=== PATIENT | female | born 1995 | race Caucasian/White ===

== ENCOUNTER 2017-02-26 20:33 | Emergency (ER) | payer MEDICAID ==
[2017-02-26 23:29] LABS: APPEARANCE,URINE CLEAR; BILIRUBIN,URINE NEGATIVE (NEGATIVE); GLUCOSE, URINE NEGATIVE (NEGATIVE); KETONES,URINE NEGATIVE (NEGATIVE); LEUKOCYTE ESTERASE,URINE TRACE (NEGATIVE); NITRITE,URINE NEGATIVE (NEGATIVE); PROTEIN,URINE NEGATIVE (NEGATIVE); URINE SPECIFIC GRAVITY 1.012; UROBILINOGEN,URINE NEGATIVE mg/dL (<2.0)
[2017-02-27 01:53] LABS: CHLAM PCR NOT DETECTED (NOT DETECT)
[2017-02-27] MEDS ORDERED: ACETAMINOPHEN 325 MG TABLET PO ONE (03:25)
[2017-02-27] MEDS ORDERED: METRONIDAZOLE 500 MG TABLET PO ONE (03:25)
--- NOTE | 2017-02-27 03:25 | ER Document Report ---
ED GI/ - General Chief Complaint: Abdominal Pain Stated Complaint: POSSIBLE ,CRAMPING Notes: Patient is a 22-year-old female who presents emergency Department complaining of suprapubic cramping worse on the right lower quadrant. Patient states that these cramps started yesterday and got worse Today. She denies any bleeding, admits to white discharge. Admits to nausea without vomiting. States she took a test recently which came back positive. She has not followed up with OB regarding this . Past medical history significant for history of kidney stones, asthma Past surgical history significant for renal calculus removal Social history: Daily smoker Primary care is [facility] TRAVEL OUTSIDE OF THE [place] IN LAST 30 DAYS: No - Related Data Allergies/Adverse Reactions: No Known Allergies Allergy (Unverified 02/26/17 20:44) Past Medical History - Social History Smoking Status: Current Every Day Smoker Family History: Reviewed & Not Pertinent Renal/ Medical History: Denies: Hx Peritoneal Dialysis Review of Systems - Review of Systems Gastrointestinal: No symptoms reported Genitourinary: No symptoms reported Female Genitourinary: See HPI -: Yes All other systems reviewed and negative Physical Exam - Vital signs Vitals: Temp Pulse Resp BP Pulse Ox 98.8 F 69 18 108/63 99 02/26/17 20:42 02/26/17 20:42 02/26/17 20:42 02/26/17 20:42 02/26/17 20:42 - Notes Notes: PHYSICAL EXAM GENERAL: Alert, interacts well. HEAD: Normocephalic, atraumatic. EYES: Pupils equal, round, and reactive to light. Extraocular movements intact. ENT: Oral mucosa moist, tongue midline. NECK: Full range of motion. Supple. Trachea midline. LUNGS: Clear to auscultation bilaterally, no wheezes, rales, or rhonchi. No respiratory distress. HEART: Regular rate and rhythm. No murmurs, gallops, or rubs. ABDOMEN: Soft, nondistended, mild tenderness in suprapubic and RLQ. No guarding , rebound, or rigidity.. Bowel sounds present in all 4 quadrants. FEMALE : Normal external exam. No evidence of lesions, lacerations, bruising or vesicles. Speculum exam normal cervix closed. There is evidence of white vaginal discharge without odor. No evidence of lesions. No vaginal bleeding. Bimanual exam normal no cervical motion tenderness. No adnexal mass or adnexal tenderness. EXTREMITIES: Moves all 4 extremities spontaneously. No edema, radial and dorsalis pedis pulses 2/4 bilaterally. No cyanosis. NEUROLOGICAL: Alert and oriented x4. Normal speech. PSYCH: Normal affect, normal mood. SKIN: Warm, dry, normal turgor. No rashes or lesions noted. Course - Re-evaluation Re-evalutation: 02/27/17 03:46 Patient is a 22-year-old female presents emergency Department complaining of abdominal cramping during . Stable, no acute distress and afebrile. Pelvic exam swabs show evidence of bacterial vaginitis, transvaginal ultrasound does not reveal living IUP. Evidence of a complex cystic structure on the right ovary. Beta hCG Quant is 304.5. Discussed these results with EASEMENT WORKER boat person Dr. Carolin Cedeno he recommends repeat beta hCG in 48 hours and call their office to discuss results and additional follow-up. Gustus plan with the patient is agreeable, also discussed signs and symptoms to be aware of indicating return to the emergency department. - Vital Signs Vital signs: Temp Pulse Resp BP Pulse Ox 97.9 F 53 L 18 111/72 95 02/27/17 03:57 02/27/17 03:57 02/27/17 03:57 02/27/17 03:57 02/27/17 03:57 - Laboratory Laboratory results interpreted by me: 02/26/17 02/27/17 22:58 00:05 Beta HCG, Quant 304.45 H Urine Blood SMALL H Ur Leukocyte Esterase TRACE H Urine HCG, Qual POSITIVE H - Diagnostic Test Radiology reviewed: Reports reviewed Discharge - Discharge Clinical Impression: Bacterial vaginitis, Abdominal pain during Condition: Good Disposition: HOME, SELF-CARE Additional Instructions: -You'll need to return to the hospital for repeat blood work on March 01. After this test has been done please call Dr. Carolin Cedeno's office at [facility] to discuss additional follow-up. Her office's phone number is VAGINITIS: Your exam shows that you have vaginitis, a vaginal infection. The infection can be caused by a many different organisms, including trichomonas or Gardnerella. The usual symptoms are vaginal irritation and discharge. The treatment is usually antibiotics such as Flagyl. Laboratory tests can determine which germ is responsible. Use the medication as prescribed. Because this infection can be transmitted sexually, your sexual partner may need to be checked and treated also. If your physician has not discussed this with you, please check before resuming sexual relations. If a culture shows gonorrhea or chlamydia, the infection must be reported to the health department. Call the doctor if you develop pelvic pain, fever, or problems with urination, or if you don't improve as expected. VAGINOSIS, BACTERIAL: Your exam shows you have bacterial vaginosis. This condition is due to an overgrowth of bacteria in the vagina. Symptoms may include vaginal itching or pain, a smelly discharge, and sometimes burning with urination. Normally this is not transmitted by sexual contact. Vaginosis can be treated with oral or topical antibiotics. Metronidazole ( Flagyl) pills are usually effective. Topical vaginal creams include Cleocin and Metro-Gel. You should avoid sexual contact until your symptoms are all better. Call the doctor if you develop pelvic pain, fever, or problems with urination, or if you don't improve as expected. ANTIBIOTIC THERAPY: You have been given an antibiotic prescription. It's important that you take all the medication, unless instructed otherwise by your physician. Failure to complete the entire course can result in relapse of your condition. Common side effects of antibiotics include nausea, intestinal cramping, or diarrhea. Women may develop vaginal yeast infections, and babies can get yeast (thrush) in the mouth following the use of antibiotics. Contact your physician if you develop significant side effects from this medication. Allergy to this antibiotic can result in hives, wheezing, faintness, or itching. If symptoms of allergy occur, stop the medication and call the doctor. METRONIDAZOLE: Metronidazole (Flagyl) has been prescribed. This medication is used to kill a type of bacteria called anaerobes, and protozoan parasites such as trichomonas and Giardia. Flagyl often causes a metallic taste in the mouth and mild nausea. Do not use alcohol in any form with Flagyl (including alcohol in medication elixirs). Flagyl interacts with alcohol to cause flushing, palpitations, headache, stomach cramps, and vomiting. Do not use Flagyl if you are taking Antabuse (disulfiram). Call the doctor at once if you develop rash, shortness of breath, itching, or lightheadedness. FOLLOW-UP CARE: If you have been referred to a physician for follow-up care, call the physician s office for an appointment as you were instructed or within the next two days. If you experience worsening or a significant change in your symptoms, notify the physician immediately or return to the Emergency Department at any time for re-evaluation. Prescriptions: Metronidazole [Flagyl 500 mg Tablet] 500 mg PO BID 7 Days Forms: Follow-Up Laboratory Testing, Parent Work Note Referrals: CAROLIN DAVIS MD [ACTIVE STAFF] - Follow up in 3-5 days
[2017-02-27 04:06] VITALS: BP 111/72
== END 2017-02-27 04:00 | disposition home or self-care (01) ==
LOC: ER 20:33
DX: O23.599 Infection of other part of genital tract in pregnancy, unspecified trimester (principal); N76.0 Acute vaginitis; B96.89 Other specified bacterial agents as the cause of diseases classified elsewhere; R10.9 Unspecified abdominal pain; O99.330 Smoking (tobacco) complicating pregnancy, unspecified trimester; Z87.442 Personal history of urinary calculi
CPT/HCPCS: 99284; 36415; 87210; 84702; 81025; 81001; 87491; 87591; 76817; 93976; J3490 ×2

== ENCOUNTER → 2017-03-01 | Outpatient (CLI) | payer MEDICAID | LOC: LAB 12:39 | PROVIDERS: ATTEND Physician Assistant Surgical | DX: O26.899 Other specified pregnancy related conditions, unspecified trimester (principal); R10.9 Unspecified abdominal pain | CPT/HCPCS: 36415; 84702 ==

== ENCOUNTER 2017-03-08 14:45 | Emergency (ER) | payer MEDICAID ==
[2017-03-08 15:08] LABS: ABSOLUTE BASOPHILS # (AUTO) 0.1 10^3/uL (0.0-0.2); ABSOLUTE EOSINOPHILS # (AUTO) 0.1 10^3/uL (0.0-0.6); ABSOLUTE LYMPHOCYTES (AUTO) 1.8 10^3/uL (0.5-4.7); ABSOLUTE MONOCYTES (AUTO) 0.8 10^3/uL (0.1-1.4); ABSOLUTE NEUT (AUTO) 5.7 10^3/uL (1.7-8.2); BASOPHILS % (AUTO) 0.6 % (0-2); EOSINOPHILS % (AUTO) 1.5 % (0-6); HEMATOCRIT 43.3 % (36.0-47.0); HEMOGLOBIN 14.5 g/dL (12.0-15.5); HGB HCT DIFFERENCE 0.2; LYMPHOCYTES % (AUTO) 21.4 % (13-45); MEAN CORPUSCULAR HEMOGLOBIN 28.1 pg (27.0-33.4); MEAN CORPUSCULAR HGB CONC 33.6 g/dL (32.0-36.0); MEAN CORPUSCULAR VOLUME 84 fl (80-97); RED BLOOD COUNT 5.17 10^6/uL (3.72-5.28); RED CELL DISTRIBUTION WIDTH 14.3 % (11.5-14.0); SEGMENTED NEUTROPHILS % (AUTO) 67.5 % (42-78); WHITE BLOOD COUNT 8.5 10^3/uL (4.0-10.5)
[2017-03-08] MEDS ORDERED: NORMAL SALINE 1000 ML 1,000 ML IV ONE (15:15)
[2017-03-08 15:23] LABS: ALANINE AMINOTRANSFERASE 22 U/L (9-52); ALBUMIN 4.1 g/dL (3.5-5.0); ALKALINE PHOSPHATASE 108 U/L (38-126); ANION GAP 16 (5-19); ASPARTATE AMINO TRANSFERASE 18 U/L (14-36); BILIRUBIN,DIRECT 0.3 mg/dL (0.0-0.4); BILIRUBIN,TOTAL 0.6 mg/dL (0.2-1.3); BLOOD UREA NITROGEN 9 mg/dL (7-20); CALCIUM 9.3 mg/dL (8.4-10.2); CARBON DIOXIDE 18 mmol/L (22-30); CHLORIDE 103 mmol/L (98-107); GLUCOSE 113 mg/dL (75-110); POTASSIUM 3.5 mmol/L (3.6-5.0); SODIUM 136.5 mmol/L (137-145); TOTAL PROTEIN 6.8 g/dL (6.3-8.2)
[2017-03-08 15:39] LABS: CREATININE RESULT 0.56 mg/dL (0.52-1.25)
--- NOTE | 2017-03-08 16:12 | ER Document Report ---
ED Respiratory Problem - General Mode of Arrival: Medic Information source: Patient TRAVEL OUTSIDE OF THE [place] IN LAST 30 DAYS: No - HPI Patient complains to provider of: Asthma, Cough, Short of breath Onset: Other - see HPI note Context: Hx asthma Associated symptoms: Cough, Difficulty breathing Similar symptoms previously: Yes Recently seen / treated by doctor: Yes <DANDY CONTE - Last Filed: 03/08/17 17:55> <XAVIER BAIN - Last Filed: 03/09/17 00:35> - General Chief Complaint: Shortness Of Breath Stated Complaint: DIFFICULTY BREATHING Notes: Patient is a 22 year old female presenting to the emergency department for dyspnea. Patient is 7 weeks with triplets; patient has been told she has 2 tubal pregnancies (left and right) as well as 1 uterine . Patient states she is being followed closely with DIGITAL PROJECT COORDINATOR for this and has a follow up appointment this Sunday for further assessment and another ultrasound. Patient denies any pain or vaginal bleeding. Patient states her back has been hurting but the pain has eased off. Patient states that she initially went to the emergency department yesterday for shortness of breath which is when the pregnancies were discovered; patient knew she was from a home test 2 weeks prior. Patient states that she today. She wants to be evaluated for her difficulty breathing. Patient has history of asthma and uses an albuterol inhaler. Patient states she has been using her rescue inhaler as well as a breathing treatment today with no relief. Patient states she has had a cough for the past 3 days and a fever today. Patient is a smoker, but states that she stopped yesterday when she found out she was having triplets. Patient's significant other has pneumonia. Patient has no known allergies. (DANDY CONTE) - Related Data Allergies/Adverse Reactions: No Known Allergies Allergy (Unverified 02/26/17 20:44) Past Medical History - General Information source: Patient - Social History Smoking Status: Former Smoker Cigarette use (# per day): No Chew tobacco use (# tins/day): No Frequency of alcohol use: None Drug Abuse: None Family History: None Pulmonary Medical History: Reports: Hx Asthma Renal/ Medical History: Reports: Hx Kidney Stones Past Surgical History: Reports: Hx Kidney (Renal Surgery) - stone removal - Immunizations Hx Diphtheria, Pertussis, Tetanus Vaccination: Yes <EDDANDY YUEN - Last Filed: 03/08/17 17:55> Review of Systems - Review of Systems Constitutional: No symptoms reported EENT: No symptoms reported Cardiovascular: No symptoms reported Respiratory: See HPI, Cough, Short of breath Gastrointestinal: No symptoms reported Genitourinary: No symptoms reported Female Genitourinary: No symptoms reported Musculoskeletal: No symptoms reported Skin: No symptoms reported Hematologic/Lymphatic: No symptoms reported Neurological/Psychological: No symptoms reported -: Yes All other systems reviewed and negative <JOSE MGUNJANDANDY - Last Filed: 03/08/17 17:55> Physical Exam <DANDY CONTE - Last Filed: 03/08/17 17:55> <XAVIER BAIN - Last Filed: 03/09/17 00:35> - Vital signs Vitals: Pulse Ox 93 03/08/17 14:49 - Notes Notes: GENERAL: Alert, diaphoretic, interacts well. No acute distress. HEAD: Normocephalic, atraumatic. EYES: Pupils equal, round, and reactive to light. Extraocular movements intact. ENT: Oral mucosa moist, tongue midline. NECK: Full range of motion. Supple. Trachea midline. LUNGS: Clear to auscultation bilaterally, no wheezes, rales, or rhonchi. No respiratory distress. Wet productive cough. HEART: Mild tachycardia, regular rhythm. No murmurs, gallops, or rubs. ABDOMEN: Soft, non-tender. Non-distended. Bowel sounds present in all 4 quadrants. EXTREMITIES: Moves all 4 extremities spontaneously. No edema. No cyanosis. NEUROLOGICAL: Alert and oriented x3. Normal speech. PSYCH: Normal affect, normal mood. SKIN: Warm, diaphoretic, normal turgor. No rashes or lesions noted. (DANDY CONTE) Course - Laboratory Result Diagrams: 03/08/17 14:50 03/08/17 14:50 <JOSE MDANDY - Last Filed: 03/08/17 17:55> - Laboratory Result Diagrams: 03/08/17 14:50 03/08/17 14:50 <XAVIER BAIN - Last Filed: 03/09/17 00:35> - Re-evaluation Re-evalutation: 03/08/17 17:36 CBC unremarkable, CMP shows low CO2 at 18, no renal failure, hCG is positive. Chest x-ray shows no acute process. Hypoxia has resolved after breathing treatments and steroids via EMS. Patient is feeling better after breathing treatments. Regarding the patient's she reports that she has been told she has to tubal pregnancies as well as 1 intrauterine . Patient states that she was having back pain several days ago, then they discovered her ectopic pregnancies, she is being followed by SALON MANAGER for this and the pain has actually improved, she is having no abdominal pain and no vaginal bleeding. She has a follow-up appointment with SALON MANAGER tomorrow. We are both in agreement that she does not need any further workup for her ectopic pregnancies at this time and we will focus primarily on her respiratory symptoms. At this time I feel that this is an acute bacterial bronchitis which requires steroids, bronchodilators and antibiotics. Patient is agreeable to this plan and will be discharged home on albuterol, prednisone and Augmentin. (XAVIER BAIN) - Vital Signs Vital signs: Temp Pulse Resp BP Pulse Ox 98.7 F 22 H 101/70 94 03/08/17 17:45 03/08/17 17:42 03/08/17 17:42 03/08/17 17:42 - Laboratory Laboratory results interpreted by me: 03/08/17 03/08/17 03/08/17 14:50 14:50 14:50 RDW 14.3 H Sodium 136.5 L Potassium 3.5 L Carbon Dioxide 18 L Glucose 113 H Serum HCG, Qual POSITIVE H Discharge <DANDY CONTE - Last Filed: 03/08/17 17:55> <XAVIER BAIN - Last Filed: 03/09/17 00:35> - Discharge Clinical Impression: Acute bronchitis with asthma with acute exacerbation, Acute bacterial bronchitis Qualifiers: Weeks of gestation: less than 8 weeks Qualified Code(s): Z3A.01 - Less than 8 weeks gestation of Condition: Stable Disposition: HOME, SELF-CARE Additional Instructions: Please use your albuterol inhaler 2 puffs every 4 hours as needed. Please return if you need of more than every 4 hours. Please take the prednisone and Augmentin as directed until they're gone. Please keep your follow-up appointment with SALON MANAGER tomorrow. If she experienced any increasing pain, any dizziness or lightheadedness, or any vaginal bleeding please come to the emergency department immediately. This may be a sign that one of your tubes has ruptured due to the tubal (ectopic) . Prescriptions: Amox Tr/Potassium Clavulanate [Augmentin 875-125 Tablet] 1 tab PO BID 7 Days Prednisone [Deltasone 20 mg Tablet] 3 tab PO DAILY 5 Days Scribe Attestation: 03/09/17 00:35 I personally performed the services described in the documentation, reviewed and edited the documentation which was dictated to the scribe in my presence, and it accurately records my words and actions. (XAVIER BAIN) Scribe Documentation - Scribe Written by Lulu:: Dandy Conte 03/08/17 17:55 acting as scribe for :: Greg <DANDY CONTE - Last Filed: 03/08/17 17:55>
[2017-03-08] MEDS ORDERED: AMOXICILLIN TR/POT CLAVULANATE 500-125 MG TAB PO ONE (17:32)
[2017-03-08] MEDS ORDERED: PREDNISONE 20 MG TABLET PO ONE (17:32)
[2017-03-08 17:43] VITALS: BP 101/70
== END 2017-03-08 17:45 | disposition home or self-care (01) ==
LOC: ER 14:45
DX: J20.9 Acute bronchitis, unspecified (principal); J45.901 Unspecified asthma with (acute) exacerbation; R06.02 Shortness of breath; Z3A.01 Less than 8 weeks gestation of pregnancy; Z87.442 Personal history of urinary calculi
CPT/HCPCS: 99285; 36415; 84703; 85025; 80053; 71020; J3490; J7512; J7030

== ENCOUNTER 2017-08-01 19:22 | Outpatient (CLI) | payer MEDICAID ==
[2017-08-01 20:16] LABS: APPEARANCE,URINE SLIGHTLY-CLOUDY; BILIRUBIN,URINE NEGATIVE (NEGATIVE); GLUCOSE, URINE NEGATIVE (NEGATIVE); KETONES,URINE NEGATIVE (NEGATIVE); LEUKOCYTE ESTERASE,URINE NEGATIVE (NEGATIVE); NITRITE,URINE NEGATIVE (NEGATIVE); PROTEIN,URINE NEGATIVE (NEGATIVE); URINE SPECIFIC GRAVITY 1.017; UROBILINOGEN,URINE NEGATIVE mg/dL (<2.0)
[2017-08-01 20:33] LABS: URINE BARBITURATES SCREEN NEGATIVE; URINE METHADONE SCREEN NEGATIVE; URINE OPIATES LOW NEGATIVE; URINE PHENCYCLIDINE SCREEN NEGATIVE
[2017-08-01] MEDS ORDERED: LANSOPRAZOLE 30 MG TAB.RAP.DR ONE (20:52)
== END 2017-08-01 21:00 | disposition home or self-care (01) ==
LOC: LC 19:22
PROVIDERS: ATTEND Specialist
PROC: 4A1HXCZ Monitoring of Products of Conception, Cardiac Rate, External Approach (ICD-10-PCS; principal; 2017-08-01)
DX: O26.892 Other specified pregnancy related conditions, second trimester (principal); R10.30 Lower abdominal pain, unspecified; Z3A.27 27 weeks gestation of pregnancy
CPT/HCPCS: 80307; 81001

== ENCOUNTER 2017-08-12 19:53 | Outpatient (CLI) | payer MEDICAID ==
[2017-08-12 20:26] LABS: APPEARANCE,URINE CLEAR; BILIRUBIN,URINE NEGATIVE (NEGATIVE); GLUCOSE, URINE NEGATIVE (NEGATIVE); KETONES,URINE NEGATIVE (NEGATIVE); LEUKOCYTE ESTERASE,URINE NEGATIVE (NEGATIVE); NITRITE,URINE NEGATIVE (NEGATIVE); PROTEIN,URINE NEGATIVE (NEGATIVE); URINE SPECIFIC GRAVITY 1.013
[2017-08-12 20:41] LABS: URINE BARBITURATES SCREEN NEGATIVE; URINE METHADONE SCREEN NEGATIVE; URINE OPIATES LOW NEGATIVE; URINE PHENCYCLIDINE SCREEN NEGATIVE
--- NOTE | 2017-08-12 21:03 | RADIOLOGY REPORT (SQ) ---
EXAM DESCRIPTION: U/S OB LIMITED COMPLETED DATE/TIME: 08/12/2017 8:54 pm REASON FOR STUDY: cervical length/28 weeks feeling pressure/pain COMPARISON: None. TECHNIQUE: Limited transabdominal and endovaginal grayscale ultrasound for evaluation of specific re quested obstetrical parameters. LIMITATIONS: None. FINDINGS: CERVICAL LENGTH: 3.4 cm. Closed. FHR: 150 beats per minute. PRESENTATION: Cephalic. OTHER: No other significant findings. IMPRESSION: 1. Living IUP. 2. Closed cervix measuring 3.4 cm. Trimester of : Third trimester - 28 weeks to delivery. TECHNICAL DOCUMENTATION: JOB ID: [id number] [employer]- All Rights Reserved
[2017-08-12] MEDS ORDERED: MAG HYDROX/AL HYDROX/SIMETH SUSP 30 ML UDCUP PO ONE (21:21)
[2017-08-12] MEDS ORDERED: ONDANSETRON HCL 8 MG TABLET PO ONE (21:21)
[2017-08-12] MEDS ORDERED: ONDANSETRON HCL 8 MG TABLET ONE (21:22)
[2017-08-12] MEDS ORDERED: MAG HYDROX/AL HYDROX/SIMETH SUSP 30 ML UDCUP ONE (21:23)
== END 2017-08-12 21:34 | disposition home or self-care (01) ==
LOC: LC 19:53
PROVIDERS: ATTEND Obstetrics & Gynecology
PROC: 4A1HXCZ Monitoring of Products of Conception, Cardiac Rate, External Approach (ICD-10-PCS; principal; 2017-08-12)
DX: Z34.92 Encounter for supervision of normal pregnancy, unspecified, second trimester (principal); Z3A.28 28 weeks gestation of pregnancy
CPT/HCPCS: 81001; 80307; 76815; 59899; J3490; S0119

== ENCOUNTER 2017-09-11 15:15 | Outpatient (CLI) | payer MEDICAID ==
[2017-09-11 16:23] LABS: AMNISURE (ROM) NEGATIVE (NEGATIVE)
[2017-09-11 17:01] LABS: APPEARANCE,URINE CLEAR; BILIRUBIN,URINE NEGATIVE (NEGATIVE); GLUCOSE, URINE NEGATIVE (NEGATIVE); KETONES,URINE NEGATIVE (NEGATIVE); LEUKOCYTE ESTERASE,URINE NEGATIVE (NEGATIVE); NITRITE,URINE NEGATIVE (NEGATIVE); PROTEIN,URINE NEGATIVE (NEGATIVE); URINE SPECIFIC GRAVITY 1.008; UROBILINOGEN,URINE NEGATIVE mg/dL (<2.0)
[2017-09-11 17:15] LABS: ABSOLUTE BASOPHILS # (AUTO) 0.1 10^3/uL (0.0-0.2); ABSOLUTE EOSINOPHILS # (AUTO) 0.3 10^3/uL (0.0-0.6); ABSOLUTE LYMPHOCYTES (AUTO) 2.6 10^3/uL (0.5-4.7); ABSOLUTE MONOCYTES (AUTO) 0.7 10^3/uL (0.1-1.4); ABSOLUTE NEUT (AUTO) 10.1 10^3/uL (1.7-8.2); BASOPHILS % (AUTO) 0.4 % (0-2); HEMATOCRIT 35.4 % (36.0-47.0); HEMOGLOBIN 11.8 g/dL (12.0-15.5); LYMPHOCYTES % (AUTO) 18.9 % (13-45); MEAN CORPUSCULAR HEMOGLOBIN 26.4 pg (27.0-33.4); MEAN CORPUSCULAR HGB CONC 33.3 g/dL (32.0-36.0); MEAN CORPUSCULAR VOLUME 79 fl (80-97); MONOCYTES % (AUTO) 5.2 % (3-13); RED BLOOD COUNT 4.48 10^6/uL (3.72-5.28); RED CELL DISTRIBUTION WIDTH 15.5 % (11.5-14.0); SEGMENTED NEUTROPHILS % (AUTO) 73.5 % (42-78); WHITE BLOOD COUNT 13.8 10^3/uL (4.0-10.5)
[2017-09-11] MEDS ORDERED: ONDANSETRON 4 MG TAB.RAPDIS PO ONE (17:30)
[2017-09-11 17:32] LABS: URINE BARBITURATES SCREEN NEGATIVE; URINE METHADONE SCREEN NEGATIVE; URINE OPIATES LOW NEGATIVE; URINE PHENCYCLIDINE SCREEN NEGATIVE
[2017-09-11 17:36] LABS: ALANINE AMINOTRANSFERASE 22 U/L (9-52); ALBUMIN 3.5 g/dL (3.5-5.0); ALKALINE PHOSPHATASE 123 U/L (38-126); AMYLASE 70 U/L (30-110); ANION GAP 10 (5-19); ASPARTATE AMINO TRANSFERASE 17 U/L (14-36); BILIRUBIN,DIRECT 0.2 mg/dL (0.0-0.4); BILIRUBIN,TOTAL 0.5 mg/dL (0.2-1.3); BLOOD UREA NITROGEN 7 mg/dL (7-20); CALCIUM 8.8 mg/dL (8.4-10.2); CARBON DIOXIDE 22 mmol/L (22-30); CHLORIDE 107 mmol/L (98-107); CREATININE RESULT 0.47 mg/dL (0.52-1.25); GLUCOSE 99 mg/dL (75-110); LIPASE 58.9 U/L (23-300); POTASSIUM 3.7 mmol/L (3.6-5.0); SODIUM 138.8 mmol/L (137-145); TOTAL PROTEIN 6.5 g/dL (6.3-8.2)
[2017-09-11 17:53] LABS: APPEARANCE,URINE CLEAR; BILIRUBIN,URINE NEGATIVE (NEGATIVE); GLUCOSE, URINE NEGATIVE (NEGATIVE); KETONES,URINE TRACE mg/dL (NEGATIVE); LEUKOCYTE ESTERASE,URINE NEGATIVE (NEGATIVE); NITRITE,URINE NEGATIVE (NEGATIVE); PROTEIN,URINE NEGATIVE (NEGATIVE); URINE SPECIFIC GRAVITY 1.013; UROBILINOGEN,URINE NEGATIVE mg/dL (<2.0)
--- NOTE | 2017-09-11 18:10 | Non Stress Test Report ---
Non Stress Test Datetime Report Generated by CPN: 09/11/2017 18:10 DEMOGRAPHIC EGA NST: 32.3 INDICATION Indication for Study: Ordered by Provider MONITORING Monitor Explained: Monitor Explained; Test Explained; Patient Verbalized Understanding Time on Monitor: 09/11/2017 16:51 Time off Monitor: 09/11/2017 17:15 NST Duration: 24 NST INTERVENTIONS NST Interventions: PO Hydration; Reposition Patient Physician Notified NST: Dr Olivo BABY A: [id number] BABY A Movement : Present Contraction Frequency : 0 FHR Baseline : 140 Accelerations : 15X15 Decelerations : None Variability : Moderate 6-25bpm NST Review: Meets Criteria for Reactive NST NST Review and Verified By : Myra Foley RNC NST Results: Reactive NST REPORT Report Trigger: Send Report
== END 2017-09-11 18:12 | disposition home or self-care (01) ==
LOC: LC 15:15
PROVIDERS: ATTEND Student in an Organized Health Care Education/Training Program
PROC: 4A1HXCZ Monitoring of Products of Conception, Cardiac Rate, External Approach (ICD-10-PCS; principal; 2017-09-11)
DX: O26.893 Other specified pregnancy related conditions, third trimester (principal); R10.9 Unspecified abdominal pain; R19.7 Diarrhea, unspecified; R11.2 Nausea with vomiting, unspecified; R35.0 Frequency of micturition; R51 Headache; Z3A.32 32 weeks gestation of pregnancy
CPT/HCPCS: 36415; 59025; 80053; 80307; 81001; 81005; 82150; 83690; 84112; 85025; 87086; 87088

== ENCOUNTER 2017-09-14 17:54 | Outpatient (CLI) | payer MEDICAID ==
[2017-09-14] MEDS ORDERED: RINGERS SOLUTION,LACTATED 1,000 ML IV ONE (18:41)
[2017-09-14 19:16] LABS: AMORPHOUS SEDIMENT,URINE TRACE /HPF; APPEARANCE,URINE CLOUDY; BILIRUBIN,URINE NEGATIVE (NEGATIVE); GLUCOSE, URINE NEGATIVE (NEGATIVE); KETONES,URINE 20 mg/dL (NEGATIVE); LEUKOCYTE ESTERASE,URINE SMALL (NEGATIVE); NITRITE,URINE NEGATIVE (NEGATIVE); PROTEIN,URINE NEGATIVE (NEGATIVE); URINE SPECIFIC GRAVITY 1.017; UROBILINOGEN,URINE NEGATIVE mg/dL (<2.0)
[2017-09-14 19:36] LABS: URINE BARBITURATES SCREEN NEGATIVE; URINE METHADONE SCREEN NEGATIVE; URINE OPIATES LOW NEGATIVE; URINE PHENCYCLIDINE SCREEN NEGATIVE
--- NOTE | 2017-09-14 19:38 | Non Stress Test Report ---
Non Stress Test Datetime Report Generated by CPN: 09/14/2017 19:38 DEMOGRAPHIC EGA NST: 32.6 INDICATION Indication for Study: Other Indication for Study (NST) Other: labor check URINE RESULTS Urine Protein, NST: Negative Urine Ketones - NST: Positive Urine Glucose - NST: Negative Urine Blood - NST: Negative MONITORING Monitor Explained: Monitor Explained; Test Explained; Patient Verbalized Understanding Time on Monitor: 09/14/2017 18:39 Time off Monitor: 09/14/2017 19:32 NST Duration: 53 NST INTERVENTIONS NST Interventions: PO Hydration; IV Fluids; Reposition Patient Physician Notified NST: Dr. Navarro BABY A: [id number] BABY A Movement : Present Contraction Frequency : N/A FHR Baseline : 125 Accelerations : 15X15 Decelerations : None Variability : Moderate 6-25bpm NST Review: Meets Criteria for Reactive NST NST Review and Verified By : Clary Tang RN NST Results: Reactive NST REPORT Report Trigger: Send Report
== END 2017-09-14 19:58 | disposition home or self-care (01) ==
LOC: EDSTATUS 18:06 → LC 18:08
PROVIDERS: ATTEND Obstetrics & Gynecology
PROC: 4A1HXCZ Monitoring of Products of Conception, Cardiac Rate, External Approach (ICD-10-PCS; principal; 2017-09-14)
DX: O47.03 False labor before 37 completed weeks of gestation, third trimester (principal); Z3A.32 32 weeks gestation of pregnancy
CPT/HCPCS: 59025; 80307; 81001